=== PATIENT | female | born 1965 | race Caucasian/White ===

== ENCOUNTER 2020-06-02 17:10 | Outpatient (CLI) | payer BC ==
[2012-10-03 07:36] VITALS: BMI 25.6
[~2020-06-02 17:10] MED LIST: PAXIL10 MG PO; PERCOCET 10/3251 TA1 PO
== END 2020-06-02 23:59 | disposition home or self-care (01) ==
LOC: D.MAMMO 17:10
PROVIDERS: ATTEND Obstetrics & Gynecology
DX: Z12.31 Encounter for screening mammogram for malignant neoplasm of breast (principal)